=== PATIENT | male | born 1990 | race American Indian/Alaskan Native ===

== ENCOUNTER 2017-06-10 12:49 | Emergency (ER) | payer OTHER ==
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
[2017-06-10 15:44] LABS: Basophils % (Auto) 0.3 % (0.0-1.8); Eosinophils % (Auto) 3.1 % (0.0-4.3); Hematocrit 39.4 % (35.5-45.6); Hemoglobin 13.1 gm/dl (11.8-15.2); Mean Corpuscular HGB Conc 33 % (32-34); Mean Corpuscular Hemoglobin 28 pg (28-32); Mean Corpuscular Volume 85 fl (84-94); Platelet Count 236 K/mm3 (140-440); Red Blood Count 4.61 M/mm3 (3.65-5.03); Red Cell Distribution Width 13.2 % (13.2-15.2); White Blood Count 3.9 K/mm3 (4.5-11.0)
[2017-06-10 15:54] LABS: INR 0.91 (0.87-1.13); Partial Thromboplastin Time 29.8 Sec. (24.2-36.6)
[2017-06-10 15:57] LABS: Urine Drugs of Abuse Note Disclamer
--- NOTE | 2017-06-10 15:58 | XRay Report ---
ROUTINE CHEST, TWO VIEWS: Chest pain. PA and lateral views demonstrate the heart and mediastinal contour to be of normal size and shape. The lungs are clear and fully expanded and the soft tissues and bony structures are normal. IMPRESSION: Normal study.
[2017-06-10 15:59] LABS: Alanine Aminotransferase 50 units/L (7-56); Albumin 4.1 g/dL (3.9-5); Albumin/Globulin Ratio 1.1 %; Alkaline Phosphatase 78 units/L (35-129); Anion Gap 19 mmol/L; BUN/Creatinine Ratio 6.66; Bilirubin,Direct < 0.2 mg/dL (0-0.2); Bilirubin,Indirect 0.1 mg/dL; Blood Urea Nitrogen 8 mg/dL (9-20); Calcium 9.3 mg/dL (8.4-10.2); Carbon Dioxide 24 mmol/L (22-30); Chloride 99.8 mmol/L (98-107); Glucose 158 mg/dL (75-100); Potassium 3.9 mmol/L (3.6-5.0); Sodium 139 mmol/L (137-145); Total Protein 7.7 g/dL (6.3-8.2)
[2017-06-10 16:02] LABS: Bilirubin,Urine NEG (Negative); Blood,Urine NEG (Negative); Ketones,Urine NEG (Negative); Leukocyte Esterase,Urine NEG (Negative); Mucus,Urine FEW /HPF; Nitrite,Urine NEG (Negative); Protein,Urine <15 mg/dL mg/dL (Negative); Urobilinogen,Urine < 2.0 mg/dL (<2.0)
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
[2017-06-11] MEDS ORDERED: TYLENOL #3 PO ONE (00:31)
[2017-06-11] MEDS ORDERED: TORADOL IM ONE (00:31)
[2017-06-11 02:25] VITALS: BP 149/79
== END 2017-06-11 02:26 | disposition home or self-care (01) ==
LOC: ED 12:49
DX: R07.89 Other chest pain (principal); M79.605 Pain in left leg; M79.604 Pain in right leg; E11.9 Type 2 diabetes mellitus without complications; Z79.4 Long term (current) use of insulin
CPT/HCPCS: 36415; 71020; 80048; 80074; 80307; 81001; 82962; 84484; 85025; 85610; 85730; 93005; 93010; 96372; 99285; J1885

== ENCOUNTER 2017-11-26 16:16 | Emergency (ER) | payer SELFPAY ==
[2017-11-26 16:49] VITALS: BP 166/102
[2017-11-26] MEDS ORDERED: TORADOL ONE (17:19)
[2017-11-26] MEDS ORDERED: TORADOL IM ONE (17:21)
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
== END 2017-11-26 17:28 | disposition home or self-care (01) ==
LOC: ED 16:16
DX: M54.5 Low back pain (principal); G89.29 Other chronic pain; R26.2 Difficulty in walking, not elsewhere classified
CPT/HCPCS: 82962; 96372; 99282; J1885

== ENCOUNTER 2018-02-09 12:25 | Emergency (ER) | payer SELFPAY ==
[2018-02-09 14:02] VITALS: BP 142/88
== END 2018-02-09 20:25 | disposition left against medical advice (07) ==
LOC: ED 12:25
DX: M54.5 Low back pain (principal); Z53.21 Procedure and treatment not carried out due to patient leaving prior to being seen by health care provider
CPT/HCPCS: 82962

== ENCOUNTER 2018-03-16 11:03 | Emergency (ER) | payer SELFPAY ==
[2018-03-16 11:43] VITALS: BP 126/65
== END 2018-03-16 13:24 | disposition left against medical advice (07) ==
LOC: ED 11:03
DX: R10.9 Unspecified abdominal pain (principal); Z53.21 Procedure and treatment not carried out due to patient leaving prior to being seen by health care provider

== ENCOUNTER 2019-08-16 12:46 | Emergency (ER) | payer SELFPAY ==
--- NOTE | 2019-08-16 12:59 | Event Note ---
ED Screening Note ED Screening Note: N/V for a few days lower abd discomfort no diarrhea no fever states his sugars having been running high DM- humalog (25 units TID) and levemir (55 units BID) This initial assessment/diagnostic orders/clinical plan/treatment(s) is/are subject to change based on patients health status, clinical progression and re- assessment by fellow clinical providers in the ED. Further treatment and workup at subsequent clinical providers discretion. Patient/guardian urged not to elope from the ED as their condition may be serious if not clinically assessed and managed. Initial orders include: labs, UA
[2019-08-16 13:58] LABS: Hematocrit 43.1 % (35.5-45.6); Hemoglobin 14.3 gm/dl (11.8-15.2); Mean Corpuscular HGB Conc 33 % (32-34); Mean Corpuscular Volume 84 fl (84-94); Platelet Count 205 K/mm3 (140-440); Red Blood Count 5.13 M/mm3 (3.65-5.03)
[2019-08-16 14:07] LABS: Mucus,Urine FEW /HPF
[2019-08-16 14:08] LABS: Color,Urine Colorless (Yellow)
[2019-08-16 14:09] LABS: Bilirubin,Urine Negative (Negative)
[2019-08-16 14:10] LABS: Blood,Urine Negative (Negative); Protein,Urine <15 mg/dL mg/dL (Negative)
[2019-08-16] MEDS ORDERED: FAMOTIDINE 20 MG/2 ML INJ IV ONE (14:19)
[2019-08-16] MEDS ORDERED: ONDANSETRON 4 MG/2 ML INJ IV ONE (14:19)
[2019-08-16] MEDS ORDERED: SODIUM CHLORIDE 0.9% 1000 ML 1,000 ML IV ONE ×3 (14:19→16:13)
[2019-08-16] MEDS ORDERED: INSULIN REGULAR, HUMAN 100 UNITS/1 ML IV ONE ×2 (14:19→17:22)
[2019-08-16 15:16] LABS: Alanine Aminotransferase 21 units/L (7-56); Albumin 4.2 g/dL (3.9-5); BUN/Creatinine Ratio 13; Blood Urea Nitrogen 20 mg/dL (9-20); Calcium 9.4 mg/dL (8.4-10.2); Hemolysis Index 28
[2019-08-16 15:39] LABS: Total Cells Counted 100
[2019-08-16 15:40] LABS: RBC Morphology Normal
--- NOTE | 2019-08-16 15:41 | XRay Report ---
CHEST 2 VIEWS INDICATION: cough. COMPARISON: 06/10/2017 FINDINGS: Support devices: None. Heart: Within normal limits. Lungs/pleura: No acute air space or interstitial disease. No pneumothorax. Additional findings: None. IMPRESSION: No acute findings. Signer Name: Godwin Rosales Jr, MD Signed: 08/16/2019 3:36 PM Workstation Name: [id number]
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
[2019-08-16 16:50] VITALS: BP 112/69
== END 2019-08-16 18:14 | disposition home or self-care (01) ==
LOC: ED 12:46
DX: E11.65 Type 2 diabetes mellitus with hyperglycemia (principal); B34.9 Viral infection, unspecified; F17.200 Nicotine dependence, unspecified, uncomplicated; Z79.899 Other long term (current) drug therapy; Z79.4 Long term (current) use of insulin
CPT/HCPCS: 36415; 71046; 80053; 81001; 82805; 82962; 83690; 85007; 85025; J2405; J7030; 96361; 96374; 96375; J1815

== ENCOUNTER 2019-09-16 07:42 | Emergency (ER) | payer SELFPAY ==
[2019-09-16 07:50] VITALS: BP 152/99
[2019-09-16] MEDS ORDERED: ALBUTEROL 2.5 MG/3 ML NEBU IH ONE (09:50)
[2019-09-16] MEDS ORDERED: predniSONE 20 MG TAB PO ONE (09:50)
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
== END 2019-09-16 10:51 | disposition home or self-care (01) ==
LOC: ED 07:42
DX: J06.9 Acute upper respiratory infection, unspecified (principal); J20.9 Acute bronchitis, unspecified; E10.65 Type 1 diabetes mellitus with hyperglycemia; F17.200 Nicotine dependence, unspecified, uncomplicated; Z98.890 Other specified postprocedural states; Z79.4 Long term (current) use of insulin
CPT/HCPCS: 82962; 99283; J7512

== ENCOUNTER 2021-07-28 13:25 | Emergency (ER) | payer MEDICARE ==
[2021-07-28] MEDS ORDERED: dexAMETHasone 20 MG/5 ML VIAL IV ONE (13:57)
[2021-07-28] MEDS ORDERED: IPRATROPIUM 0.02% NEBU 2.5 ML IH ONE (13:57)
[2021-07-28] MEDS ORDERED: ALBUTEROL 2.5 MG/3 ML NEBU IH ONE (13:57)
[2021-07-28] MEDS ORDERED: SODIUM CHLORIDE 0.9% 1000 ML 1,000 ML IV ONE (13:58)
[2021-07-28 14:10] VITALS: BP 135/87
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
[2021-07-28 14:33] LABS: Hematocrit 42.7 % (35.5-45.6); Hemoglobin 14.1 gm/dl (11.8-15.2); Mean Corpuscular HGB Conc 33 % (32-34); Mean Corpuscular Volume 85 fl (84-94); Platelet Count 250 K/mm3 (140-440); Red Blood Count 5.05 M/mm3 (3.65-5.03); Red Cell Distribution Width 12.9 % (13.2-15.2)
[2021-07-28 14:44] LABS: Basophils % (Auto) 0.7 % (0.0-1.8); Eosinophils # (Auto) 0.1 K/mm3 (0.0-0.4); Eosinophils % (Auto) 3.5 % (0.0-4.3); Lymphocytes % (Auto) 35.7 % (13.4-35.0); Monocytes # (Auto) 0.3 K/mm3 (0.0-0.8); Monocytes % (Auto) 9.9 % (0.0-7.3)
--- NOTE | 2021-07-28 14:44 | XRay Report ---
CHEST 2 VIEWS INDICATION: wheezing, cough, sob. COMPARISON: 07/17/2021 FINDINGS: SUPPORT DEVICES: None. HEART: Within normal limits. LUNGS/PLEURA: No acute air space or interstitial disease. No pneumothorax. ADDITIONAL FINDINGS: None. IMPRESSION: 1. No acute findings. Signer Name: Brenden Batista MD Signed: 07/28/2021 2:40 PM Workstation Name: [id number]
[2021-07-28 14:52] LABS: Alanine Aminotransferase 8 units/L (7-56); Albumin 3.9 g/dL (3.9-5); BUN/Creatinine Ratio 5; Blood Urea Nitrogen 7 mg/dL (9-20); Calcium 9.1 mg/dL (8.4-10.2); Hemolysis Index 4
[2021-07-28] MEDS ORDERED: INSULIN REGULAR, HUMAN 100 UNITS/1 ML IV ONE (14:58)
== END 2021-07-28 15:34 | disposition left against medical advice (07) ==
LOC: ED 13:25
DX: J20.9 Acute bronchitis, unspecified (principal); E11.65 Type 2 diabetes mellitus with hyperglycemia; F17.200 Nicotine dependence, unspecified, uncomplicated
CPT/HCPCS: 36415; 71046; 80053; 82805; 83690; 85025; 94640; 96374; 96375; 99284; J1100; J7030; 94644; J1815